=== PATIENT | male | born 1940 | race Caucasian/White ===

== ENCOUNTER 2017-10-21 09:17 | Inpatient (IN) | payer OTHER ==
[~2017-10-21] VITALS: Ht 15.2 cm; Wt 5.0 kg
[2017-10-21] MEDS ORDERED: FORTAMET500 MG PO (09:52)
[2017-10-21] MEDS ORDERED: SYNTHROID50 MCG PO (09:52)
[2017-10-28] MEDS ORDERED: PERCOCET 5-3251 EACH PO (07:56)
[2017-10-28] MEDS ORDERED: OMEPRAZOLE20 MG PO (07:56)
== END 2017-10-28 12:41 | disposition home or self-care (01) | DRG 340 ==
LOC: ER 09:17 → SURG 15:38 → SEC-K 15:38 → O/R 17:23 → SURG 20:06
PROVIDERS: Surgery
PROC: 0D9J40Z Drainage of Appendix with Drainage Device, Percutaneous Endoscopic Approach (ICD-10-PCS; 2017-10-21)
PROC: BW21ZZZ Computerized Tomography (CT Scan) of Abdomen and Pelvis (ICD-10-PCS; 2017-10-21)
PROC: 0DTJ4ZZ Resection of Appendix, Percutaneous Endoscopic Approach (ICD-10-PCS; principal; 2017-10-21 17:00)
DX: K35.2 Acute appendicitis with generalized peritonitis (principal); B96.20 Unspecified Escherichia coli [E. coli] as the cause of diseases classified elsewhere; B96.5 Pseudomonas (aeruginosa) (mallei) (pseudomallei) as the cause of diseases classified elsewhere; E03.8 Other specified hypothyroidism; E11.9 Type 2 diabetes mellitus without complications; Z88.8 Allergy status to other drugs, medicaments and biological substances

== ENCOUNTER 2017-11-27 07:25 | Emergency (ER) | payer OTHER ==
[~2017-11-27] VITALS: Ht 167.6 cm; Wt 68.9 kg
[~2017-11-27 07:25] MED LIST: FORTAMET500 MG PO; OMEPRAZOLE20 MG PO; PERCOCET 5-3251 EACH PO; SYNTHROID50 MCG PO
== END 2017-11-27 09:18 | disposition home or self-care (01) ==
LOC: ER 07:25
DX: H11.32 Conjunctival hemorrhage, left eye (principal); H11.002 Unspecified pterygium of left eye

== ENCOUNTER 2020-11-26 06:29 | Day surgery (SDC) | payer OTHER | END 2020-11-26 10:50 | disposition home or self-care (01) | LOC: AMB-ENDOS 06:29 | PROVIDERS: ATTEND Surgery | DX: D12.2 Benign neoplasm of ascending colon (principal); D12.3 Benign neoplasm of transverse colon; D12.5 Benign neoplasm of sigmoid colon; Z20.822 Contact with and (suspected) exposure to COVID-19 ==

== ENCOUNTER 2021-02-21 09:21 | Outpatient (CLI) | payer OTHER | END 2021-02-21 09:22 | disposition home or self-care (01) | LOC: PPH VACUNA 09:21 | PROVIDERS: ATTEND Emergency Medicine Pediatric Emergency Medicine | DX: Z23 Encounter for immunization (principal) ==